=== PATIENT | male | born 1955 | race Caucasian/White ===

== ENCOUNTER 2018-04-03 09:32 | Day surgery (SDC) | payer OTHER ==
[2018-04-03] MEDS ORDERED: fentaNYL 100 MCG/2 ML INJ IVP ONE (09:37)
[2018-04-03] MEDS ORDERED: NS 500 ML IV ONE (09:37)
[2018-04-03] MEDS ORDERED: MIDAZOLAM 2 MG/2 ML VIAL IVP ONE (09:37)
[2018-04-03] MEDS ORDERED: ATROPINE SULFATE 1 MG/10 ML SYR IVP ONE (09:37)
[2018-04-03] MEDS ORDERED: BENZOCAINE UNIT DOSE SPRAY HURRICAINE MM ONE (09:37)
[2018-04-03 10:41] LABS: INR 1.25 (0.83-1.16); PROTIME(PATIENT) 15.9 SEC (12.0-15.0)
--- NOTE | 2018-04-03 10:52 | PDHPUP ---
History & Physical Update H&P update statement: This history and physical update is based on an assessment of the patient which was completed after admission or registration (within 24 hours), but prior to the surgery/procedure. Pt with recent Occipital CVA and new onset of A flutter. He is currently on Xarelto. He had been on Eliquis 5 mg bid and changed to Xarelto due to cost. He is feeling fatiuged and lethargic. ECG today and ECG from our office yesterday demonstrate 3:1 flutter. H&P update: H&P reviewed & patient examined, no change in patient's condition since H&P completed
--- NOTE | 2018-04-03 11:00 | PDANEPAE ---
ANE Past Medical History - Cardiovascular History Hx Hypertension: Yes Hx Arrhythmias: Yes Hx Chest Pain: No Hx Coronary Artery / Peripheral Vascular Disease: Yes Hx CHF / Valvular Disease: No Hx Palpitations: Yes - Pulmonary History Hx COPD: No Hx Asthma/Reactive Airway Disease: No Hx Recent Upper Respiratory Infection: No Hx Oxygen in Use at Home: No Hx Sleep Apnea: Yes ANE Review of Systems Review of Systems: ANE Patient History - Allergies Allergies/Adverse Reactions: carvedilol Allergy (Verified 04/03/18 06:33) - Home Medications Home Medications: Allopurinol 04/03/18 [Last Taken Unknown] Aspirin 04/03/18 [Last Taken Unknown] Bisoprolol Fumarate 04/03/18 [Last Taken Unknown] Eliquis 04/03/18 [Last Taken Unknown] FENOFIBRATE 04/03/18 [Last Taken Unknown] Fish Oil 1,000 mg Softgel 04/03/18 [Last Taken Unknown] Garlic 04/03/18 [Last Taken Unknown] Meloxicam 04/03/18 [Last Taken Unknown] Pravastatin Sodium 04/03/18 [Last Taken Unknown] Torsemide 04/03/18 [Last Taken Unknown] Zolpidem Tartrate 04/03/18 [Last Taken Unknown] traMADol 04/03/18 [Last Taken Unknown] - Smoking Hx Smoking Status: Never smoked ANE Labs/Vital Signs - Labs Result Diagrams: 04/03/18 10:20 - Vital Signs Height: 185.42 cm Weight: 117.934 kg ANE Physical Exam - Airway Neck exam: FROM Mallampati Score: Class 1 Mouth exam: normal dental/mouth exam - Pulmonary Pulmonary: no respiratory distress - Cardiovascular Cardiovascular: regular rate and rhythym - ASA Status ASA Status: II ANE Anesthesia Plan Anesthesia Plan: GA with mask
[2018-04-03] MEDS ORDERED: SUCCINYLCHOLINE CHLORIDE 200 MG/10 ML SYR IVP ONE (11:02)
[2018-04-03] MEDS ORDERED: LIDOCAINE 1% 5 ML SDV ONE (11:02)
[2018-04-03] MEDS ORDERED: PROPOFOL 200 MG/20 ML VIAL ONE ×2 (11:02→11:17)
--- NOTE | 2018-04-03 15:27 | ECHO ---
[email or web address] [id number] Main: [phone] Fax: Transesophageal Echocardiography Name: JANETTE MICHELLE MR#: [id number] Study Date: 04/03/2018 Study Time: 10:50 AM Date of : 1955 Age: 62 year(s) Height: ( ) Weight: ( ) BSA: Gender: Male Examination: CLEMENTINE Indication: Atrial Fibrillation Image Quality: Contrast: Requested by: Shin Sylvester Heart Rate: Rhythm: BP: 159 mmHg/116 mmHg Procedure Staff Hands And Dial Inspector: Bianca Cruz RDCS Reading Physician: Shin Sylvester MD Requesting Provider: CLEMENTINE Exam Details Conclusions: Low normal left ventricular systolic function. The ejection fraction is visually estimated to be 50 %. The left atrium is moderately dilated. Normal appearing atrial septum. No thrombus is noted in the left atrium. The left atrial appendage is multilobular. No thrombus in left appendage. Measurements: Chambers Valvular Assessment AV/MV Valvular Assessment TV/PV Normal Normal Normal Name Value Range Name Value Range Name Value Range Visual EF: 50 % Additional Measurements: Findings: Left Ventricle: Low normal left ventricular systolic function. The ejection fraction is visually estimated to be 50 %. Left Atrium: The left atrium is moderately dilated. Normal appearing atrial septum. No thrombus is noted in the left atrium. Left Atrial Appendage: Patient: JANETTE MICHELLE Study Date: 04/03/2018 Page 1 of 2 10:50 AM The left atrial appendage is multilobular. No thrombus in left appendage. Mitral Valve: The mitral valve is normal in appearance. Mild mitral valve regurgitation is present. Aortic Valve: The aortic valve is tri-leaflet. Pericardium: There is pericardial fat. l1n (No Signature Object) Patient: JANETTE MICHELLE Study Date: 04/03/2018 Page 2 of 2 10:50 AM [id number]
--- NOTE | 2018-04-03 16:52 | CPR ---
DATE OF PROCEDURE: 04/03/2018 PROCEDURE PERFORMED: Transesophageal echocardiogram and direct current cardioversion. INDICATION FOR PROCEDURE: 1. Symptomatic atrial flutter. 2. History of recent CVA. HISTORY: The patient is a pleasant 62-year-old gentleman who had suffered an occipital CVA last week . He was initially cared for in [place]. He was found to be in atrial flutter. He was started on Coumadin and ultimately changed to Eliquis. Eliquis was cost prohibitive and he was subsequently ashley nged to Xarelto 20 ____mg daily. He confirms he has been compliant with medications since his discha rge from hospital. He did take Xarelto 20 mg this morning. He was seen by my colleague, Dr. Harrell, in the office yesterday with continued complaints of symptoma tic atrial flutter with 3:1 block at approximately 75 beats per minute. ECG today demonstrates 3:1 b lock atrial flutter at 74 beats per minute. DESCRIPTION OF PROCEDURE: After informed consent was obtained for CLEMENTINE cardioversion anesthesia, the patient had a bite block put in place. He was sedated with propofol. Once appropriate level of casey tion was achieved, images were obtained of his left atrium and left atrial appendage. Images were ta ute in multiple angles, as well as with explant imaging. He has a large atrial appendage with no sophia dence of thrombus. Please see complete echocardiogram report for full details. CLEMENTINE probe was removed. The patient underwent a single biphasic shock of 200 joules with taoism of sinus rhythm. He is currently in sinus bradycardia at approximately 52 beats per minute. He tole rated this procedure well without complications. Currently, at time of this dictation, he is awakeni ng from anesthesia. PLAN: 1. Continue his current medications, including Xarelto 20 mg daily. 2. Patient will follow up with his primary home organizer, Dr. Dwight Harrell. I recommend he remain on al l outpatient cardiac medications. /[id number]/MODL
--- NOTE | 2018-04-06 05:05 | CPEKG ---
Test Reason : OPEN Blood Pressure : / mmHG Vent. Rate : 074 BPM Atrial Rate : 300 BPM P-R Int : 171 ms QRS Dur : 107 ms QT Int : 401 ms P-R-T Axes : 091 066 -20 degrees QTc Int : 445 ms atrial tachycardia with 3:1 conduction. Confirmed by Albino Mercedes ([id number]) on 04/06/2018 5:05:50 AM Referred By: Confirmed By:Albino Mercedes
--- NOTE | 2018-04-06 05:07 | CPEKG ---
Test Reason : OPEN Blood Pressure : / mmHG Vent. Rate : 052 BPM Atrial Rate : 052 BPM P-R Int : 202 ms QRS Dur : 096 ms QT Int : 481 ms P-R-T Axes : 044 065 050 degrees QTc Int : 448 ms Sinus rhythm Confirmed by Albino Mercedes ([id number]) on 04/06/2018 5:07:03 AM Referred By: Confirmed By:Albino Mercedes
== END 2018-04-03 13:16 | disposition still patient (30) ==
LOC: FCATH 09:32
PROVIDERS: ATTEND Internal Medicine Cardiovascular Disease
PROC: 5A2204Z Restoration of Cardiac Rhythm, Single (ICD-10-PCS; principal; 2018-04-03)
PROC: B245ZZ4 Ultrasonography of Left Heart, Transesophageal (ICD-10-PCS; principal; 2018-04-03)
DX: I48.92 Unspecified atrial flutter (principal); Z86.73 Personal history of transient ischemic attack (TIA), and cerebral infarction without residual deficits; I10 Essential (primary) hypertension; E78.2 Mixed hyperlipidemia
CPT/HCPCS: J0330; J2704

== ENCOUNTER 2018-04-04 15:06 | Emergency (ER) | payer OTHER ==
[2018-04-04 15:40] LABS: PLATELET COUNT 179 10^3/uL (150-400)
[2018-04-04] MEDS ORDERED: NS 500 ML IV ONE (16:12)
--- NOTE | 2018-04-04 16:16 | EDPHY ---
H & P Time Seen by Provider: 04/04/18 15:57 HPI/ROS: CHIEF COMPLAINT: chest pain, shortness of breath HISTORY OF PRESENT ILLNESS: Patient is a 62-year-old male who presents to the emergency department with chest discomfort and shortness of breath. Patient has a complicated recent history. Last week the patient was seen in the emergency department because he was not feeling well and slightly confused. He was noted to have a very elevated blood pressure. During his workup he was found to have a"stroke."He did not receive tPA. He was also found to be in atrial flutter. He was placed on warfarin for 3 days. He subsequently returned home was seen by Dr. Harrell from Cardiology yesterday. He was cardioverted. He was doing well until last night around 9:00 p.m. When he started to feel"weird."Patient states that he has had mild increased shortness of breath. He has had mild chest discomfort."This may be from the paddles. "Patient describes mild substernal chest discomfort. He has had increasing shortness of breath when walking up stairs. No leg pain or swelling. REVIEW OF SYSTEMS: 10 systems were reveiwed and are negative with the exception of the elements mentioned in the history of present illness. Past Medical/Surgical History: Includes CVA, atrial flutter, gout, hypertension Past surgical history: Includes ablation in 2003 and cardioversion yesterday. He has had ankle fracture repair. Social history: Patient does not smoke. Smoking Status: Never smoked Physical Exam: 36.9, 170/107, 52, 16, 99% on room air GENERAL: Well-appearing, in no acute distress, alert. HEENT: Eyes normal to inspection, normal pharynx, no signs of dehydration. PERRLA. Normal fundi. NECK: Normal, supple. RESPIRATORY: Clear to auscultation bilaterally, no rales, rhonchi or wheezing. CVS: Regular rate and rhythm, no rubs, murmurs, or gallops. No chest wall discomfort. No discoloration. ABDOMEN: Soft, nontender, nondistended, no organomegaly. BACK: Normal to inspection, no CVA tenderness. SKIN: Normal color, no rash, warm, dry. No pallor. EXTREMITIES: No pedal edema, no calf tenderness, no Homans sign or cords, no joint swelling. NEURO/PSYCH: Higher functions: Alert and Oriented x3. Normal speech and cognition. Normal mood and affect. Cranial nerves: Normal as tested. Cerebellar: Normal as tested. Good finger to nose, good [id number], normal gait. Peripheral exam: Normal motor exam. Normal sensation. Normal reflexes. Constitutional: Initial Vital Signs Temperature (C) 36.9 C 04/04/18 15:15 Heart Rate 52 L 04/04/18 15:15 Respiratory Rate 16 04/04/18 15:15 Blood Pressure 170/107 H 04/04/18 15:15 O2 Sat (%) 99 04/04/18 15:15 O2 Delivery Mode Room Air Allergies/Adverse Reactions: carvedilol Allergy (Verified 04/03/18 06:33) Home Medications: Medication Instructions Recorded Allopurinol 04/03/18 Aspirin 04/03/18 Bisoprolol Fumarate 04/03/18 FENOFIBRATE 04/03/18 Fish Oil 1,000 mg Softgel 04/03/18 Garlic 04/03/18 Meloxicam 04/03/18 Pravastatin Sodium 04/03/18 Torsemide 04/03/18 Xarelto 04/03/18 Zolpidem Tartrate 04/03/18 traMADol 04/03/18 Medical Decision Making - Diagnostics Imaging Results: Imaging Impressions Chest X-Ray 04/04/18 16:12 Impression: Nothing acute identified. Head CT 04/04/18 16:12 Impression: Moderate-sized subacute left parieto-occipital cortical ischemic infarction, without evidence of hemorrhage or mass effect. Results called to Dr. Teresa Vega at 5:15 PM at the time of the interpretation. ED Course/Re-evaluation: In the emergency department I discussed possible etiologies with the patient. I answered all his questions. IV was placed. Laboratory studies, chest x-ray and EKG were ordered. EKG shows normal sinus rhythm, normal rate, normal axis, normal intervals. There are no ST or T-wave abnormalities. EKG is normal as interpreted by me. CBC was unremarkable. Chem notable for creatinine 1.4. Troponin was negative. BNP was 247. Head CT: Please refer to the dictated report. The patient has a noted old left cerebellar stroke. No bleed. I discussed the case with Dr. Polanco who is on-call for Cardiology. He felt the patient was safe for discharge. He did not want repeat a troponin. Patient will follow up with Cardiology on Friday morning. Patient was given warnings prior to leaving. He will return with worsening symptoms. I do not feel the patient is having new acute stroke symptoms and he has nonfocal neurologic exam. Differential Diagnosis: EKG shows normal sinus rhythm, normal rate, normal axis, normal intervals. There are no ST or T-wave abnormalities. EKG is normal as interpreted by me. - Data Points Laboratory Results: Laboratory Results 04/04/18 15:22 04/04/18 15:22 04/04/18 04/04/18 04/04/18 15:30 15:22 15:22 WBC RBC Hgb Hct MCV MCH MCHC RDW Plt Count MPV Neut % (Auto) Lymph % (Auto) [place] % (Auto) Eos % (Auto) Baso % (Auto) Nucleat RBC Rel Count Absolute Neuts (auto) Absolute Lymphs (auto) Absolute Monos (auto) Absolute Eos (auto) Absolute Basos (auto) Absolute Nucleated RBC Immature Gran % Immature Gran # Sodium 138 mEq/L mEq/L (135-145) Potassium 4.4 mEq/L mEq/L (3.5-5.2) Chloride 107 mEq/L mEq/L (97-110) Carbon Dioxide 23 mEq/l mEq/l (22-31) Anion Gap 8 mEq/L mEq/L (6-14) BUN 26 mg/dL H mg/dL (7-23) Creatinine 1.4 mg/dL H mg/dL (0.7-1.3) Estimated GFR 52 Glucose 100 mg/dL mg/dL (70-100) Calcium 9.0 mg/dL mg/dL (8.5-10.4) POC Troponin I 0.01 ng/mL ng/mL (0.00-0.08) NT-Pro-B Natriuret Pep 247 pg/mL H pg/mL (0-125) 04/04/18 15:22 WBC 5.91 10^3/uL 10^3/uL (3.80-9.50) RBC 4.50 10^6/uL 10^6/uL (4.40-6.38) Hgb 13.4 g/dL L g/dL (13.7-17.5) Hct 41.1 % % (40.0-51.0) MCV 91.3 fL fL (81.5-99.8) MCH 29.8 pg pg (27.9-34.1) MCHC 32.6 g/dL g/dL (32.4-36.7) RDW 12.5 % % (11.5-15.2) Plt Count 179 10^3/uL 10^3/uL (150-400) MPV 9.8 fL fL (8.7-11.7) Neut % (Auto) 62.1 % % (39.3-74.2) Lymph % (Auto) 25.9 % % (15.0-45.0) [place] % (Auto) 10.2 % % (4.5-13.0) Eos % (Auto) 1.4 % % (0.6-7.6) Baso % (Auto) 0.2 % L % (0.3-1.7) Nucleat RBC Rel Count 0.0 % % (0.0-0.2) Absolute Neuts (auto) 3.68 10^3/uL 10^3/uL (1.70-6.50) Absolute Lymphs (auto) 1.53 10^3/uL 10^3/uL (1.00-3.00) Absolute Monos (auto) 0.60 10^3/uL 10^3/uL (0.30-0.80) Absolute Eos (auto) 0.08 10^3/uL 10^3/uL (0.03-0.40) Absolute Basos (auto) 0.01 10^3/uL L 10^3/uL (0.02-0.10) Absolute Nucleated RBC 0.00 10^3/uL 10^3/uL (0-0.01) Immature Gran % 0.2 % % (0.0-1.1) Immature Gran # 0.01 10^3/uL 10^3/uL (0.00-0.10) Sodium Potassium Chloride Carbon Dioxide Anion Gap BUN Creatinine Estimated GFR Glucose Calcium POC Troponin I NT-Pro-B Natriuret Pep Medications Given: Discontinued Medications Sodium Chloride (Ns) 500 mls @ 0 mls/hr IV ONCE ONE; Wide Open PRN Reason: Protocol Stop: 04/04/18 16:13 Last Admin: 04/04/18 17:06 Dose: Not Given Point of Care Test Results: Chemistry 04/04/18 15:30 POC Troponin I 0.01 ng/mL ng/mL (0.00-0.08) Departure - Departure Disposition: Home, Routine, Self-Care Clinical Impression: Chest pain Qualifiers: Chest pain type: unspecified Qualified Code(s): R07.9 - Chest pain, unspecified Dyspnea Qualifiers: Dyspnea type: unspecified Qualified Code(s): R06.00 - Dyspnea, unspecified Condition: Good Instructions: Dyspnea (ED) Additional Instructions: Follow-up with Cardiology on Friday. Call firstt thing to make an appointment. Return to the emergency department with increasing shortness of breath, chest pain, visual change or any other concerns. Referrals: Jaiden Redmond DO [Primary Care Provider] - 2-3 days without fail Eric Harrell MD [Medical Doctor] - 2-3 days, call for appt.
[2018-04-04 18:24] VITALS: BP 172/95
--- NOTE | 2018-04-04 23:10 | CPEKG ---
Test Reason : OPEN Blood Pressure : / mmHG Vent. Rate : 051 BPM Atrial Rate : 051 BPM P-R Int : 208 ms QRS Dur : 095 ms QT Int : 464 ms P-R-T Axes : 056 067 026 degrees QTc Int : 428 ms Sinus rhythm Confirmed by Cam Azul ([id number]) on 04/04/2018 11:10:04 PM Referred By: Confirmed By:Cam Azul
== END 2018-04-04 18:23 | disposition home or self-care (01) ==
DX: I63.9 Cerebral infarction, unspecified (principal); R07.9 Chest pain, unspecified; R06.00 Dyspnea, unspecified; I48.91 Unspecified atrial fibrillation; I10 Essential (primary) hypertension
CPT/HCPCS: 84484-ER